=== PATIENT | female | born 1980 | race Caucasian/White ===

== ENCOUNTER 2017-08-08 14:00 | Observation (INO) | payer OTHER ==
[~2017-08-08] VITALS: Ht 154.9 cm; Wt 65.3 kg
[2017-08-08 14:50] VITALS: BP 99/61
[2017-08-08 18:02] LABS: GLUCOSE,POINT OF CARE 60 MG/DL (70-110)
[2017-08-08 20:33] LABS: GLUCOSE COMMENT 1 Doctor Notified; GLUCOSE COMMENT 2 Post Meal; GLUCOSE,POINT OF CARE 122 MG/DL (70-110)
[2017-08-08] MEDS: RINGERS SOLUTION,LACTATED 1,000 ML IV SCH ×2 (21:02→21:43)
[2017-08-08] MEDS ORDERED: NIFEdipine 10 MG CAPSULE PO ONE (22:00)
== END 2017-08-08 22:45 | disposition home or self-care (01) ==
LOC: INTOOBSV 14:00 → OBSVTOIN 14:00 → 4S 14:00 → UNDODISIN 22:45
PROVIDERS: ADMIT Obstetrics & Gynecology; ATTEND Obstetrics & Gynecology
DX: O62.9 Abnormality of forces of labor, unspecified (principal); Z3A.37 37 weeks gestation of pregnancy
CPT/HCPCS: 59025; 82962; 96360; 96361; G0378; J7120

== ENCOUNTER 2017-08-19 20:20 | Inpatient (IN) | payer OTHER ==
[~2017-08-19] VITALS: Ht 154 cm; Wt 64.0 kg
[2017-08-19] MEDS ORDERED: RINGERS SOLUTION,LACTATED 1,000 ML IV PRN (20:31)
[2017-08-19] MEDS ORDERED: OXYTOCIN 30 UNITS/LACT RINGERS 500 ML IV ONE (20:31)
[2017-08-19] MEDS ORDERED: FentaNYL CITRATE-PF 100 MCG/2 ML VIAL IVP PRN (20:45)
[2017-08-19] MEDS ORDERED: LIDOCAINE HCL/PF 1% 30 ML VIAL INJ PRN (20:45)
[2017-08-19] MEDS ORDERED: METOCLOPRAMIDE HCL 5 MG/ML 2 ML VIAL IVP PRN (20:45)
[2017-08-19] MEDS ORDERED: CITRIC ACID/SODIUM CITRATE 30 ML SOLUTION UDCUP PO PRN (20:45)
[2017-08-19] MEDS ORDERED: OXYGEN THERAPY IH SCH (20:45)
[2017-08-19 21:02] LABS: BASOPHILS % (AUTO) 0.3 % (0.0-2.0); EOSINOPHILS % (AUTO) 0.4 % (1.0-6.0); HEMATOCRIT 32.3 % (36-46); HEMOGLOBIN 10.4 g/dL (12.0-16.0); LYMPHOCYTES # (AUTO) 2.5 K/uL (1.0-4.8); LYMPHOCYTES % (AUTO) 28.3 % (22.0-44.0); MEAN CORPUSCULAR HEMOGLOBIN 25.4 pg (26.0-34.0); MEAN CORPUSCULAR HGB CONC 32.2 G/dL (31.0-37.0); MEAN CORPUSCULAR VOLUME 79 fL (80-100); MONOCYTES # (AUTO) 0.5 K/uL (0.1-1.0); MONOCYTES % (AUTO) 6.3 % (2.0-9.0); NEUTROPHILS # (AUTO) 5.6 K/uL (1.8-7.7); NEUTROPHILS % (AUTO) 64.7 % (40.0-70.0); RED BLOOD CELL COUNT(AUTO) 4.09 MIL/uL (4.00-5.20); RED CELL DISTRIBUTION WIDTH 14.6 % (11.5-14.5); WHITE BLOOD COUNT (AUTO) 8.7 K/uL (4.5-11.0)
[2017-08-19 21:38] VITALS: BP 103/62
[2017-08-19 22:08] LABS: GLUCOSE,POINT OF CARE 72 MG/DL (70-110)
[2017-08-19] MEDS ORDERED: OXYTOCIN 30 UNITS/LACT RINGERS 500 ML IV PRN (22:42)
[2017-08-19] MEDS: RINGERS SOLUTION,LACTATED 1,000 ML IV SCH (22:52)
[2017-08-20] MEDS ORDERED: PREN1TAB80 PO (04:51)
[2017-08-20] MEDS: RINGERS SOLUTION,LACTATED 1,000 ML IV SCH (06:30)
[2017-08-20] MEDS ORDERED: ROPIVACAINE HCL 0.2% 100 ML ED ONE (09:26)
[2017-08-20] MEDS ORDERED: OXYTOCIN 30 UNITS/LACT RINGERS 500 ML IV ONE (15:12)
[2017-08-20] MEDS ORDERED: IBUPROFEN 800 MG TABLET PO PRN (15:15)
[2017-08-20] MEDS ORDERED: OxyCODONE HCL/ACETAMINOPHEN 5-325 MG TABLET PO PRN ×2 (15:15)
[2017-08-20] MEDS ORDERED: MAGNESIUM HYDROXIDE SUSPENSION 30 ML UDCUP PO PRN (15:15)
[2017-08-20] MEDS ORDERED: BENZOCAINE 20%/MENTHOL 56 GM SPRAY CANISTER TP PRN (15:15)
[2017-08-20] MEDS ORDERED: LIDOCAINE HCL/PF 1% 30 ML VIAL INJ PRN (15:15)
[2017-08-20] MEDS ORDERED: GLYCERIN/WITCH HAZEL LEAF 40 PADS JAR TP PRN (15:15)
[2017-08-20] MEDS ORDERED: LANOLIN 7 GM OINTMENT TP PRN (15:15)
[2017-08-21 06:09] LABS: BASOPHILS % (AUTO) 0.2 % (0.0-2.0); EOSINOPHILS % (AUTO) 0.5 % (1.0-6.0); HEMATOCRIT 28.7 % (36-46); HEMOGLOBIN 9.3 g/dL (12.0-16.0); LYMPHOCYTES # (AUTO) 2.8 K/uL (1.0-4.8); MEAN CORPUSCULAR HEMOGLOBIN 25.6 pg (26.0-34.0); MEAN CORPUSCULAR HGB CONC 32.4 G/dL (31.0-37.0); MEAN CORPUSCULAR VOLUME 79 fL (80-100); MONOCYTES % (AUTO) 7.4 % (2.0-9.0); NEUTROPHILS # (AUTO) 10.1 K/uL (1.8-7.7); NEUTROPHILS % (AUTO) 71.9 % (40.0-70.0); RED BLOOD CELL COUNT(AUTO) 3.64 MIL/uL (4.00-5.20); RED CELL DISTRIBUTION WIDTH 14.9 % (11.5-14.5); WHITE BLOOD COUNT (AUTO) 14.1 K/uL (4.5-11.0)
[2017-08-21] MEDS ORDERED: IBUP-2070 PO (13:14)
[2017-08-21] MEDS ORDERED: DSS100 PO (13:15)
[2017-08-21] MEDS ORDERED: FERR-89 PO (13:16)
== END 2017-08-21 17:00 | disposition home or self-care (01) | DRG 775 ==
LOC: 4S 20:20 → OBSVTOIN 20:20 → 4S 08-21 05:56
PROVIDERS: ADMIT Obstetrics & Gynecology; ATTEND Obstetrics & Gynecology
PROC: 10E0XZZ Delivery of Products of Conception, External Approach (ICD-10-PCS; principal; 2017-08-20)
PROC: 10907ZC Drainage of Amniotic Fluid, Therapeutic from Products of Conception, Via Natural or Artificial Opening (ICD-10-PCS; 2017-08-20)
PROC: 3E0S3BZ Introduction of Anesthetic Agent into Epidural Space, Percutaneous Approach (ICD-10-PCS; 2017-08-20)
PROC: 00HU33Z Insertion of Infusion Device into Spinal Canal, Percutaneous Approach (ICD-10-PCS; 2017-08-20)
DX: O24.420 Gestational diabetes mellitus in childbirth, diet controlled (principal); O09.523 Supervision of elderly multigravida, third trimester; Z37.0 Single live birth; Z3A.39 39 weeks gestation of pregnancy
CPT/HCPCS: 82962; 86850; 86900; 86901; J2590; J2795; J7120

== ENCOUNTER 2019-10-02 10:20 | Inpatient (IN) | payer OTHER ==
[~2019-10-02] VITALS: Ht 154 cm; Wt 65.8 kg
[~2019-10-02 10:20] MED LIST: DSS100 PO; FERR-89 PO; IBUP-2070 PO; PREN1TAB80 PO
[2019-10-02] MEDS ORDERED: RINGERS SOLUTION,LACTATED 1,000 ML IV PRN (10:55)
[2019-10-02] MEDS ORDERED: OXYTOCIN 20 UNITS/LACT RINGERS 1,000 ML IV ONE (10:55)
[2019-10-02] MEDS ORDERED: OXYTOCIN 30 UNITS/LACT RINGERS 500 ML IV ONE (10:55)
[2019-10-02] MEDS ORDERED: FentaNYL CITRATE-PF 100 MCG/2 ML VIAL IVP PRN (11:00)
[2019-10-02] MEDS ORDERED: METOCLOPRAMIDE HCL 5 MG/ML 2 ML VIAL IVP PRN (11:00)
[2019-10-02] MEDS ORDERED: LIDOCAINE/PF 1% 30 ML VIAL INJ PRN (11:00)
[2019-10-02] MEDS ORDERED: METHYLERGONOVINE MALEATE 0.2 MG/ML VIAL IM PRN (11:00)
[2019-10-02] MEDS ORDERED: CITRIC ACID/SODIUM CITRATE 30 ML SOLUTION UDCUP PO PRN (11:00)
[2019-10-02] MEDS ORDERED: MISOPROSTOL 25 MCG TABLET VG ONE (11:30)
[2019-10-02] MEDS: RINGERS SOLUTION,LACTATED 1,000 ML IV SCH ×3 (11:44→20:34)
[2019-10-02 12:10] LABS: BASOPHILS % (AUTO) 0.3 % (0.0-2.0); EOSINOPHILS % (AUTO) 0.6 % (1.0-6.0); HEMATOCRIT 37.1 % (36-46); HEMOGLOBIN 12.4 g/dL (12.0-16.0); LYMPHOCYTES # (AUTO) 1.5 K/uL (1.0-4.8); MEAN CORPUSCULAR HGB CONC 33.3 G/dL (31.0-37.0); MEAN CORPUSCULAR VOLUME 87 fL (80-100); MONOCYTES # (AUTO) 0.4 K/uL (0.1-1.0); NEUTROPHILS # (AUTO) 4.8 K/uL (1.8-7.7); NEUTROPHILS % (AUTO) 71.1 % (40.0-70.0); PLATELET COUNT (AUTO)-OB 231 K/uL (150-450); RED BLOOD CELL COUNT(AUTO) 4.27 MIL/uL (4.00-5.20); RED CELL DISTRIBUTION WIDTH 13.9 % (11.5-14.5)
[2019-10-02] MEDS ORDERED: PREN-217 PO (12:39)
[2019-10-02 12:49] VITALS: BP 96/59
[2019-10-02] MEDS ORDERED: DOCU-275 PO (13:05)
[2019-10-02 13:12] LABS: GLUCOMETER DEV NAME(LOC) 4S.; GLUCOSE,POINT OF CARE 76 MG/DL (70-110)
[2019-10-02] MEDS ORDERED: INFLUENZA VIRUS VACCINE QVS 2019-20 (3YR+)/PF 60 MCG/0.5 ML SYRINGE IM ONE (13:15)
[2019-10-02] MEDS ORDERED: LIDOCAINE/PF 2% 5 ML VIAL ONE (16:39)
[2019-10-02] MEDS ORDERED: ROPIVACAINE HCL/PF 0.2% 100 ML ED ONE (16:40)
[2019-10-02] MEDS ORDERED: DiphenhydrAMINE HCL 50 MG/ML VIAL IVP PRN (17:00)
[2019-10-02] MEDS ORDERED: ONDANSETRON HCL 4 MG/2 ML VIAL IVP PRN (17:00)
[2019-10-02] MEDS ORDERED: NALBUPHINE HCL 10 MG/ML VIAL IVP PRN (17:00)
[2019-10-02] MEDS ORDERED: ROPIVACAINE HCL/PF 0.2% 100 ML ED PRN (17:00)
[2019-10-02] MEDS ORDERED: OXYGEN THERAPY IH SCH (20:00)
[2019-10-03] MEDS ORDERED: IBUPROFEN 600 MG TABLET PO PRN (05:00)
[2019-10-03] MEDS ORDERED: LANOLIN 7 GM OINTMENT TP PRN (05:00)
[2019-10-03] MEDS ORDERED: MAGNESIUM HYDROXIDE SUSPENSION 30 ML UDCUP PO PRN (05:00)
[2019-10-03] MEDS ORDERED: GLYCERIN/WITCH HAZEL LEAF 40 PADS JAR TP PRN (05:00)
[2019-10-03] MEDS ORDERED: SENNA/DOCUSATE SODIUM 8.6-50 MG TABLET PO PRN (05:00)
[2019-10-03] MEDS ORDERED: BENZOCAINE 20%/MENTHOL 56 GM SPRAY CANISTER TP PRN (05:00)
[2019-10-03] MEDS ORDERED: ACETAMINOPHEN/CODEINE 300-30 MG TABLET PO PRN (05:00)
[2019-10-04 06:48] LABS: HEMATOCRIT 32.9 % (36-46); HEMOGLOBIN 11.1 g/dL (12.0-16.0); RED BLOOD CELL COUNT(AUTO) 3.78 MIL/uL (4.00-5.20)
[2019-10-04 06:49] LABS: BASOPHILS % (AUTO) 0.2 % (0.0-2.0); EOSINOPHILS % (AUTO) 0.6 % (1.0-6.0); LYMPHOCYTES # (AUTO) 2.3 K/uL (1.0-4.8); LYMPHOCYTES % (AUTO) 18.8 % (22.0-44.0); MEAN CORPUSCULAR HEMOGLOBIN 29.5 pg (26.0-34.0); MEAN CORPUSCULAR HGB CONC 33.8 G/dL (31.0-37.0); MEAN CORPUSCULAR VOLUME 87 fL (80-100); MONOCYTES # (AUTO) 0.7 K/uL (0.1-1.0); MONOCYTES % (AUTO) 5.7 % (2.0-9.0); NEUTROPHILS # (AUTO) 9.2 K/uL (1.8-7.7); NEUTROPHILS % (AUTO) 74.7 % (40.0-70.0); PLATELET COUNT (AUTO)-OB 194 K/uL (150-450); RED CELL DISTRIBUTION WIDTH 13.6 % (11.5-14.5)
[2019-10-04] MEDS ORDERED: IBUP-2071 PO (08:31)
[2019-10-04] MEDS ORDERED: FERR-89 PO (08:32)
== END 2019-10-04 12:20 | disposition home or self-care (01) | DRG 807 ==
LOC: INTOOBSV 10:20 → OBSVTOIN 10:20 → 4S 10:20
PROVIDERS: ADMIT Obstetrics & Gynecology; ATTEND Obstetrics & Gynecology
PROC: 10E0XZZ Delivery of Products of Conception, External Approach (ICD-10-PCS; principal; 2019-10-03)
PROC: 3E0R3BZ Introduction of Anesthetic Agent into Spinal Canal, Percutaneous Approach (ICD-10-PCS; 2019-10-03)
PROC: 00HU33Z Insertion of Infusion Device into Spinal Canal, Percutaneous Approach (ICD-10-PCS; 2019-10-03)
PROC: 3E02340 Introduction of Influenza Vaccine into Muscle, Percutaneous Approach (ICD-10-PCS; 2019-10-03)
DX: O75.89 Other specified complications of labor and delivery (principal); Z37.0 Single live birth; Z3A.39 39 weeks gestation of pregnancy; Z23 Encounter for immunization
CPT/HCPCS: 83036; 86850; 86900; 86901; 90686; J2405; J2590; J2795; J3490; J7120